=== PATIENT | female | born 1975 | race Caucasian/White ===

== ENCOUNTER 2020-03-26 17:46 | Emergency (ER) | payer MEDICARE, MEDICAID ==
[~2020-03-26] VITALS: Ht 170.2 cm; Wt 63.6 kg
[2020-03-26] MEDS ORDERED: AMOXICILLIN 8751 TAB PO (20:05)
[2020-03-26 20:15] VITALS: BP 126/72; PULSE 72; TEMP 97.6
[2020-03-26] MEDS ORDERED: SYNTHROID0.05 MG/TA PO (20:32)
== END 2020-03-26 20:19 | disposition home or self-care (01) ==
LOC: COL.ER 17:46
DX: K11.20 Sialoadenitis, unspecified (principal)

== ENCOUNTER 2020-06-24 12:34 | Emergency (ER) | payer MEDICAID ==
[~2020-06-24] VITALS: Ht 167.6 cm; Wt 64.1 kg
[~2020-06-24 12:34] MED LIST: AMOXICILLIN 8751 TAB PO; SYNTHROID0.05 MG/TA PO
[2020-06-24 12:47] VITALS: TEMP 98.2
[2020-06-24 13:23] LABS: BASO # 0.1 (0.0-0.2); EOS # 0.4 (0.0-0.7); EOS % 5.4 % (0-4.0); GRAN # 3.6 (1.4-6.5); GRAN % 51.2 % (42.2-75.2); HEMATOCRIT 38.1 % (37.0-47.0); HEMOGLOBIN 12.9 g/dl (12.5-16.0); LYMPH # 2.4 (1.2-3.4); LYMPH % 34.1 % (20.0-51.0); MEAN CELL VOLUME 86 fl (80.0-100.0); MEAN CORPUSCULAR HEMOGLOBIN 29 pg (27.0-31.0); MEAN CORPUSCULAR HGB CONC 34 g/dl (33.0-37.0); MEAN PLATELET VOLUME 9.8 fl (7.4-10.4); MONO # 0.6 (0.1-0.6); MONO % 7.9 % (1.7-9.3); PLATELET COUNT 348 K/mm3 (130-400); RED BLOOD COUNT 4.42 M/mm3 (4.10-5.30); REDCELL DISTRIBUTION WIDTH-CV 12.4 % (11.5-14.5)
[2020-06-24 13:34] LABS: ALBUMIN 4.7 gm/dL (3.5-5.0); BILIRUBIN,TOTAL 0.6 mg/dL (0.0-1.0); CALCIUM 9.4 mg/dL (8.4-10.2); CREATININE, serum 0.81 (0.52-1.25); POTASSIUM 3.7 mmol/L (3.4-5.0)
[2020-06-24 13:38] LABS: COLLECTION METHOD CLEAN CATCH
[2020-06-24 14:22] LABS: MUCOUS Present /lpf; PH 5 (5-8); SQUAMOUS EPITHELIAL 0-2 /hpf; URINE APPEARANCE Hazy; URINE BACTERIA None Seen /hpf; URINE BILIRUBIN Negative (NEGATIVE); URINE BLOOD Negative (NEGATIVE); URINE COLOR Yellow; URINE GLUCOSE Negative (NEGATIVE); URINE KETONE Negative (NEGATIVE); URINE LEUKOCYTE ESTERASE 1+ (NEGATIVE); URINE NITRATE Negative (NEGATIVE); URINE PROTEIN(semi-quant) Negative (NEGATIVE); URINE RBC 0-2 /hpf; URINE UROBILINOGEN Negative (NEGATIVE)
[2020-06-24] MEDS ORDERED: BONINE25 MG PO (15:11)
[2020-06-24 15:40] VITALS: BP 109/70; PULSE 89
== END 2020-06-24 15:34 | disposition home or self-care (01) ==
LOC: COL.ER 12:34
PROVIDERS: Family Medicine
DX: J45.909 Unspecified asthma, uncomplicated (principal); E07.9 Disorder of thyroid, unspecified; H54.7 Unspecified visual loss; Z79.890 Hormone replacement therapy
CPT/HCPCS: J2405; J7120